=== PATIENT | male | born 2000 | race Caucasian/White ===

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

== ENCOUNTER 2018-05-16 23:14 | Emergency (ER) | payer OTHER ==
--- NOTE | 2018-05-16 23:53 | ER Document Report ---
ED Medical Screen (RME) - General Chief Complaint: Abdominal Pain Stated Complaint: ABDOMINAL PAIN Time Seen by Provider: 05/16/18 23:50 Notes: Patient is a 18-year-old male presents to the emergency department complaining of rectal pain, lower abdominal pain and rectal bleeding. Patient states she has an extensive history of constipation states he has not had a bowel movement for 2 weeks. States he saw GI yesterday and was put on trulance. States he does have a colonoscopy scheduled for Monday. Patient states the pain was unbearable this evening and he noted a lot of bright red blood in the toilet and on the toilet seat which is why he inevitably presents to the emergency room. Past medical history: Constipation Medications: Trulance, Colace Allergies: None GENERAL: Alert, interacts well. Pallor, tachycardic, diaphoretic. ABDOMEN: Soft, generalized tenderness all 4 quadrants Non-distended. Bowel sounds present in all 4 quadrants. I have greeted and performed a rapid initial assessment of this patient. A comprehensive ED assessment and evaluation of the patient, analysis of test results and completion of the medical decision making process will be conducted by additional ED providers. TRAVEL OUTSIDE OF THE [place] IN LAST 30 DAYS: No - Related Data Allergies/Adverse Reactions: No Known Allergies Allergy (Verified 12/17/13 20:22) Past Medical History - Past Medical History Cardiac Medical History: Denies: Hx Heart Attack, Hx Hypertension Pulmonary Medical History: Denies: Hx Asthma Neurological Medical History: Denies: Hx Cerebrovascular Accident, Hx Seizures GI Medical History: Denies: Hx Hepatitis, Hx Hiatal Hernia, Hx Ulcer Infectious Medical History: Denies: Hx Hepatitis Past Surgical History: Denies: Hx Open Heart Surgery, Hx Pacemaker - Immunizations Hx Diphtheria, Pertussis, Tetanus Vaccination: Yes Physical Exam - Vital signs Vitals: Temp Pulse Resp BP Pulse Ox 97.4 F 116 H 24 H 154/93 H 97 05/16/18 23:32 05/16/18 23:32 05/16/18 23:32 05/16/18 23:32 05/16/18 23:32 Course - Vital Signs Vital signs: Temp Pulse Resp BP Pulse Ox 97.4 F 116 H 24 H 154/93 H 97 05/16/18 23:32 05/16/18 23:32 05/16/18 23:32 05/16/18 23:32 05/16/18 23:32 Doctor's Discharge - Discharge Referrals: AYLIN LOBATO MD [Primary Care Provider] - Follow up as needed
[2018-05-17 00:34] LABS: ABSOLUTE LYMPHOCYTES (AUTO) 1.1 10^3/uL (0.5-4.7); ABSOLUTE MONOCYTES (AUTO) 0.9 10^3/uL (0.1-1.4); ABSOLUTE NEUT (AUTO) 13.3 10^3/uL (1.7-8.2); BASOPHILS % (AUTO) 0.3 % (0-2); EOSINOPHILS % (AUTO) 0.2 % (0-6); HEMATOCRIT 54.6 % (37.9-51.0); HEMOGLOBIN 18.8 g/dL (13.5-17.0); LYMPHOCYTES % (AUTO) 6.9 % (13-45); MEAN CORPUSCULAR HGB CONC 34.4 g/dL (32.0-36.0); MEAN CORPUSCULAR VOLUME 84 fl (80-97); MONOCYTES % (AUTO) 5.6 % (3-13); PLATELET COUNT 333 10^3/uL (150-450); RED BLOOD COUNT 6.48 10^6/uL (4.35-5.55); RED CELL DISTRIBUTION WIDTH 13.9 % (11.5-14.0); TOTAL CELLS COUNTED % (AUTO) 100 %; WHITE BLOOD COUNT 15.3 10^3/uL (4.0-10.5)
[2018-05-17 00:46] LABS: ALANINE AMINOTRANSFERASE 31 U/L (21-72); ALBUMIN 5.4 g/dL (3.5-5.0); ALKALINE PHOSPHATASE 121 U/L (38-126); ANION GAP 14 (5-19); ASPARTATE AMINO TRANSFERASE 25 U/L (17-59); BILIRUBIN,DIRECT 0.4 mg/dL (0.0-0.4); BILIRUBIN,TOTAL 1.1 mg/dL (0.2-1.3); BLOOD UREA NITROGEN 18 mg/dL (7-20); CARBON DIOXIDE 20 mmol/L (22-30); CHLORIDE 105 mmol/L (98-107); GLUCOSE 138 mg/dL (75-110); POTASSIUM 3.9 mmol/L (3.6-5.0); SODIUM 138.8 mmol/L (137-145); TOTAL PROTEIN 8.6 g/dL (6.3-8.2)
[2018-05-17] MEDS ORDERED: NORMAL SALINE 1000 ML 1,000 ML IV ONE (00:52)
[2018-05-17] MEDS ORDERED: FENTANYL CITRATE INJ/PF 100 MCG/2 ML AMPUL IV ONE (00:52)
[2018-05-17] MEDS ORDERED: MINERAL OIL 30 ML UDCUP PR ONE (01:09)
[2018-05-17 01:20] VITALS: BP 159/90
--- NOTE | 2018-05-17 01:29 | RADIOLOGY REPORT (SQ) ---
XR ABDOMEN SUPINE AND ERECT WITH CHEST (ABD ACUTE SERIES) HISTORY: Abdominal pain. COMPARISON: None. FINDINGS: There are possible air-fluid levels in the right hemiabdomen on the upright view. Copious stool is seen throughout the colon and rectum. The lungs are clear without pleural effusions. IMPRESSION: 1. Possible air-fluid levels which may represent developing small bowel obstruction. Recommend CT scan. 2. Constipation with a large stool burden in the rectum. 3. Clear lungs.
--- NOTE | 2018-05-17 03:47 | ER Document Report ---
ED General - General Chief Complaint: Abdominal Pain Stated Complaint: ABDOMINAL PAIN Time Seen by Provider: 05/16/18 23:50 Notes: I initially saw the patient in [facility]. See note below. Patient is a 18-year-old male presents to the emergency department complaining of rectal pain, lower abdominal pain and rectal bleeding. Patient states he has an extensive history of constipation states he has not had a bowel movement for 2 weeks. States he saw GI yesterday and was put on trulance. States he does have a colonoscopy scheduled for Monday. Patient states the pain was unbearable this evening and he noted a lot of bright red blood in the toilet and on the toilet seat which is why he inevitably presents to the emergency room. Past medical history: Constipation Medications: Trulance, Colace Allergies: None GENERAL: Alert, interacts well. Pallor, tachycardic, diaphoretic. ABDOMEN: Soft, generalized tenderness all 4 quadrants Non-distended. Bowel sounds present in all 4 quadrants TRAVEL OUTSIDE OF THE [place] IN LAST 30 DAYS: No - Related Data Allergies/Adverse Reactions: No Known Allergies Allergy (Verified 12/17/13 20:22) Past Medical History - General Information source: Patient, Parent - Social History Smoking Status: Never Smoker Family History: Reviewed & Not Pertinent - Past Medical History Cardiac Medical History: Denies: Hx Heart Attack, Hx Hypertension Pulmonary Medical History: Denies: Hx Asthma Neurological Medical History: Denies: Hx Cerebrovascular Accident, Hx Seizures GI Medical History: Denies: Hx Hepatitis, Hx Hiatal Hernia, Hx Ulcer Infectious Medical History: Denies: Hx Hepatitis Past Surgical History: Denies: Hx Open Heart Surgery, Hx Pacemaker - Immunizations Hx Diphtheria, Pertussis, Tetanus Vaccination: Yes Review of Systems - Review of Systems Constitutional: No symptoms reported EENT: No symptoms reported Cardiovascular: No symptoms reported Respiratory: No symptoms reported Gastrointestinal: See HPI Genitourinary: No symptoms reported Male Genitourinary: No symptoms reported Musculoskeletal: No symptoms reported Skin: No symptoms reported Hematologic/Lymphatic: No symptoms reported Neurological/Psychological: No symptoms reported Physical Exam - Vital signs Vitals: Temp Pulse Resp BP Pulse Ox 97.4 F 116 H 24 H 154/93 H 97 05/16/18 23:32 05/16/18 23:32 05/16/18 23:32 05/16/18 23:32 05/16/18 23:32 - Notes Notes: GENERAL: Alert, interacts well. Continues to be tachycardic, diaphoretic and in obvious pain. HEAD: Normocephalic, atraumatic. EYES: Pupils equal, round, and reactive to light. Extraocular movements intact. ENT: Oral mucosa moist, tongue midline. NECK: Full range of motion. Supple. Trachea midline. LUNGS: Clear to auscultation bilaterally, no wheezes, rales, or rhonchi. No respiratory distress. HEART: Regular rate and rhythm. No murmur ABDOMEN: Soft, generalized tenderness all 4 quadrants. Non-distended. Bowel sounds present in all 4 quadrants. EXTREMITIES: Moves all 4 extremities spontaneously. No edema, normal radial and dorsalis pedis pulses bilaterally. No cyanosis. BACK: no cervical, thoracic, lumbar midline tenderness. No saddle anesthesia, normal distal neurovascular exam. NEUROLOGICAL: Alert and oriented x3. Normal speech. cranial nerves II through XII grossly intact PSYCH: Normal affect, normal mood. SKIN: Warm, dry, normal turgor. No rashes or lesions noted. Rectal exam with Josiane TORIBIO in the room revealed Copious amounts of watery stool leakage, good rectal tone noted no obvious m jackie or bright red blood noted. Course - Re-evaluation Re-evalutation: 05/17/18 03:46 A soapsuds enema was initially ordered. Per nursing staff the patient had a lot of trouble holding in the enema. Nursing staff stated they attempted multiple times. Due to patient's acute abdominal series stating potential SBO a CT was then ordered. Patient had had no relief at that time from the enema. Nursing staff then brings to my attention that the patient has passed a large hard amount of stool. Nursing staff states the patient feels a lot better. Upon my reassessment the patient is no longer tachycardic, no longer diaphoret ic, no longer pallor. Patient is standing walking around the room in no obvious distress. Patient states he no longer has any abdominal pain and no longer has any rectal pain. Patient states I feel a whole lot better after I was able to poop. On reexamination of patient's abdomen he is soft and nontender in all 4 quadrants. Discussed continued use of medications prescribed by gastroenterology and continued follow-up with gastroenterology. At this time patient is stable for discharge. 05/17/18 03:48 Patient's labs showed no signs of anemia or chronic blood loss. - Vital Signs Vital signs: Temp Pulse Resp BP Pulse Ox 97.4 F 116 H 20 159/90 H 98 05/16/18 23:32 05/16/18 23:32 05/17/18 02:00 05/17/18 00:12 05/17/18 02:00 - Laboratory Result Diagrams: 05/17/18 00:22 05/17/18 00:22 Laboratory results interpreted by me: 05/17/18 05/17/18 00:22 00:22 WBC 15.3 H RBC 6.48 H Hgb 18.8 H Hct 54.6 H Seg Neutrophils % 87.0 H Lymphocytes % 6.9 L Absolute Neutrophils 13.3 H Carbon Dioxide 20 L Creatinine 1.54 H Est GFR (Non-Af Amer) 58 L Glucose 138 H Calcium 11.0 H Total Protein 8.6 H Albumin 5.4 H Discharge - Discharge Clinical Impression: Constipation Qualifiers: Constipation type: unspecified constipation type Qualified Code(s): K59.00 - Constipation, unspecified Condition: Stable Disposition: HOME, SELF-CARE Instructions: Abdominal Pain ([facility]), Constipation ([facility]) Additional Instructions: As we discussed you should continue taking medications prescribed by [facility]. You should also return to the emergency room should you have any more abdominal pain or continued rectal bleeding. Please follow-up with your primary care provider in 24-48 hours. Prescriptions: Polyethylene Glycol 3350 [Miralax] 1 cap PO DAILY #527 powder Referrals: AYLIN LOBATO MD [NO LOCAL MD] - Follow up as needed
== END 2018-05-17 04:15 | disposition home or self-care (01) ==
LOC: ER 23:14
DX: K59.00 Constipation, unspecified (principal); R10.9 Unspecified abdominal pain; K62.89 Other specified diseases of anus and rectum; R10.30 Lower abdominal pain, unspecified; R23.1 Pallor; R00.0 Tachycardia, unspecified
CPT/HCPCS: 99284; 96374; 36415; 85025; 80053; 74022; J3010; J3490; J7030

== ENCOUNTER 2018-08-01 13:55 | Emergency (ER) | payer OTHER ==
[2018-08-01] MEDS ORDERED: METOCLOPRAMIDE HCL INJ/PF 10 MG/2 ML SDV IV ONE (14:18)
--- NOTE | 2018-08-01 14:21 | ER Document Report ---
ED Medical Screen (RME) - General Chief Complaint: Constipation Stated Complaint: ABDOMINAL PAIN Time Seen by Provider: 08/01/18 14:14 TRAVEL OUTSIDE OF THE [place] IN LAST 30 DAYS: No - HPI Notes: 08/01/18 14:19 Patient is a 18-year-old male with a history of chronic intermittent abdominal pains, Higginbotham esophagus, nausea/vomiting who presents the emergency department complaining of mid abdominal pain that radiates across the abdomen with trouble having bowel movements. Mother believes his last bowel movement was 2 days ago, patient cannot remember. He is otherwise able to eat and drink, but does have a decreased p.o. intake. He is urinating normally. No surgeries to his abdomen. Denies any headache, fever, URI, sore throat, chest pain, palpitations, syncope, cough, shortness of breath, wheeze, dyspnea, urinary retention, dysuria, hematuria, or rash. I have treated and performed a rapid initial assessment of this patient. A comprehensive ED assessment and evaluation of the patient, analysis of test results and completion of medical decision making process will be conducted by additional ED providers. PHYSICAL EXAMINATION: GENERAL: Well-appearing, well-nourished and in no acute distress. A&Ox4. Answers questions appropriately. LUNGS: Breath sounds clear to auscultation bilaterally and equal. No wheezes rales or rhonchi. HEART: Regular rate and rhythm without murmurs, rubs, gallops. ABDOMEN: Soft, nondistended abdomen. No guarding, no rebound. Normal bowel sounds present. No CVA tenderness bilaterally. + mild mid tenderness (cannot elicit thorough abd exam w/o table, however). Extremities: No cyanosis, clubbing, or edema b/l. NEUROLOGICAL: Normal speech, normal gait. PSYCH: Normal mood, normal affect. - Related Data Allergies/Adverse Reactions: No Known Allergies Allergy (Verified 08/01/18 13:56) Past Medical History - Past Medical History Cardiac Medical History: Denies: Hx Heart Attack, Hx Hypertension Pulmonary Medical History: Denies: Hx Asthma Neurological Medical History: Denies: Hx Cerebrovascular Accident, Hx Seizures Renal/ Medical History: Denies: Hx Peritoneal Dialysis GI Medical History: Reports: Hx Gastroesophageal Reflux Disease. Denies: Hx Hepatitis, Hx Hiatal Hernia, Hx Ulcer Psychiatric Medical History: Reports: Hx Bipolar Disorder Infectious Medical History: Denies: Hx Hepatitis Past Surgical History: Denies: Hx Open Heart Surgery, Hx Pacemaker - Immunizations Hx Diphtheria, Pertussis, Tetanus Vaccination: Yes Physical Exam - Vital signs Vitals: Temp Pulse Resp BP Pulse Ox 97.8 F 98 18 152/94 H 97 08/01/18 14:01 08/01/18 14:01 08/01/18 14:01 08/01/18 14:01 08/01/18 14:01 Course - Vital Signs Vital signs: Temp Pulse Resp BP Pulse Ox 97.8 F 98 18 152/94 H 97 08/01/18 14:01 08/01/18 14:01 08/01/18 14:01 08/01/18 14:01 08/01/18 14:01
--- NOTE | 2018-08-01 15:04 | RADIOLOGY REPORT (SQ) ---
EXAM DESCRIPTION: ACUTE ABDOMEN SERIES COMPLETED DATE/TIME: 08/01/2018 2:53 pm REASON FOR STUDY: abd pain COMPARISON: 05/17/2018. NUMBER OF VIEWS: Three views. TECHNIQUE: Frontal chest, supine abdomen and upright/decubitus abdomen radiographic images acquired. LIMITATIONS: None. FINDINGS: CHEST: Lungs clear of infiltrates. FREE AIR: None. No abnormal gas collections. BOWEL GAS PATTERN: Nonobstructive pattern. Large amount of stool throughout the colon. No dilated l oops or air fluid levels. CALCIFICATIONS: No suspicious calcifications. HARDWARE: None in the abdomen. SOFT TISSUES: No gross mass or suggestion of organomegaly. BONES: No acute fracture. No worrisome bone lesions. OTHER: No other significant finding. IMPRESSION: NO RADIOGRAPHIC EVIDENCE FOR ACUTE ABDOMINAL DISEASE. LARGE AMOUNT OF STOOL, POSSIBLY C ONSTIPATION. TECHNICAL DOCUMENTATION: JOB ID: [id number] [employer]- All Rights Reserved Reading location - IP/workstation name: [email or web address]
[2018-08-01 15:06] LABS: ABSOLUTE BASOPHILS # (AUTO) 0.1 10^3/uL (0.0-0.2); ABSOLUTE EOSINOPHILS # (AUTO) 0.2 10^3/uL (0.0-0.6); ABSOLUTE LYMPHOCYTES (AUTO) 1.6 10^3/uL (0.5-4.7); ABSOLUTE MONOCYTES (AUTO) 0.6 10^3/uL (0.1-1.4); ABSOLUTE NEUT (AUTO) 4.4 10^3/uL (1.7-8.2); BASOPHILS % (AUTO) 0.9 % (0-2); EOSINOPHILS % (AUTO) 2.2 % (0-6); HEMATOCRIT 49.6 % (37.9-51.0); HEMOGLOBIN 17.3 g/dL (13.5-17.0); LYMPHOCYTES % (AUTO) 23.7 % (13-45); MEAN CORPUSCULAR HEMOGLOBIN 29.8 pg (27.0-33.4); MEAN CORPUSCULAR HGB CONC 34.8 g/dL (32.0-36.0); MEAN CORPUSCULAR VOLUME 86 fl (80-97); MONOCYTES % (AUTO) 8.5 % (3-13); PLATELET COUNT 294 10^3/uL (150-450); RED BLOOD COUNT 5.79 10^6/uL (4.35-5.55); RED CELL DISTRIBUTION WIDTH 13.8 % (11.5-14.0); SEGMENTED NEUTROPHILS % (AUTO) 64.7 % (42-78); TOTAL CELLS COUNTED % (AUTO) 100 %; WHITE BLOOD COUNT 6.8 10^3/uL (4.0-10.5)
[2018-08-01 15:20] LABS: ALANINE AMINOTRANSFERASE 30 U/L (21-72); ALBUMIN 4.9 g/dL (3.5-5.0); ALKALINE PHOSPHATASE 103 U/L (38-126); ANION GAP 11 (5-19); ASPARTATE AMINO TRANSFERASE 34 U/L (17-59); BILIRUBIN,DIRECT 0.4 mg/dL (0.0-0.4); BLOOD UREA NITROGEN 16 mg/dL (7-20); CALCIUM 10.6 mg/dL (8.4-10.2); CARBON DIOXIDE 21 mmol/L (22-30); CHLORIDE 110 mmol/L (98-107); GLUCOSE 90 mg/dL (75-110); LIPASE 57.5 U/L (23-300); POTASSIUM 4.2 mmol/L (3.6-5.0); SODIUM 141.5 mmol/L (137-145); TOTAL PROTEIN 8.7 g/dL (6.3-8.2)
--- NOTE | 2018-08-01 15:52 | ER Document Report ---
ED General - General Chief Complaint: Constipation Stated Complaint: ABDOMINAL PAIN Time Seen by Provider: 08/01/18 14:14 Mode of Arrival: Ambulatory Information source: Patient Notes: This is a 18-year-old man with a history of bipolar affective disorder, ADHD, anxiety, GERD/Higginbotham's esophagitis, hiatal hernia and a long history of constipation issues. Patient is followed by Dr. Johnson and had an unremarkable colonoscopy in May and had an EGD performed yesterday. Patient states he was at work and started having significant abdominal pain. He does feel like he is been constipated. He does experience some rectal bleeding when he has straining hard to have a bowel movement. Medicines: Vyvanse 75 mg daily Seroquel 300 mg nightly Clonidine 0.3 mg nightly Vistaril 25 mg twice daily Lamictal 100 mg twice daily Topamax 250 mg daily Omeprazole 40 mg twice daily Ambien 10 mg nightly as needed Colorite Trulance 3mg Daily No known drug allergies TRAVEL OUTSIDE OF THE [place] IN LAST 30 DAYS: No - HPI Onset: Just prior to arrival Onset/Duration: Gradual Quality of pain: Dull Severity: Moderate Pain Level: 2 Associated symptoms: denies: Chest pain, Diarrhea, Nausea, Vomiting, Shortness of breath Exacerbated by: Denies Relieved by: Denies Similar symptoms previously: Yes Recently seen / treated by doctor: Yes - Related Data Allergies/Adverse Reactions: No Known Allergies Allergy (Verified 08/01/18 13:56) Past Medical History - General Information source: Patient - Social History Smoking Status: Current Every Day Smoker Cigarette use (# per day): Yes - Half pack per day Chew tobacco use (# tins/day): No Frequency of alcohol use: None Drug Abuse: None Lives with: Family Family History: Reviewed & Not Pertinent Patient has suicidal ideation: No Patient has homicidal ideation: No - Past Medical History Cardiac Medical History: Denies: Hx Heart Attack, Hx Hypertension Pulmonary Medical History: Denies: Hx Asthma Neurological Medical History: Denies: Hx Cerebrovascular Accident, Hx Seizures Renal/ Medical History: Denies: Hx Peritoneal Dialysis GI Medical History: Reports: Hx Gastroesophageal Reflux Disease. Denies: Hx Hepatitis, Hx Hiatal Hernia, Hx Ulcer Psychiatric Medical History: Reports: Hx Bipolar Disorder Infectious Medical History: Denies: Hx Hepatitis Past Surgical History: Denies: Hx Open Heart Surgery, Hx Pacemaker - Immunizations Hx Diphtheria, Pertussis, Tetanus Vaccination: Yes Review of Systems - Review of Systems Constitutional: denies: Chills, Fever EENT: No symptoms reported Cardiovascular: No symptoms reported Respiratory: No symptoms reported Gastrointestinal: See HPI Genitourinary: No symptoms reported Male Genitourinary: No symptoms reported Musculoskeletal: No symptoms reported Skin: No symptoms reported Hematologic/Lymphatic: No symptoms reported Neurological/Psychological: No symptoms reported Physical Exam - Vital signs Vitals: Temp Pulse Resp BP Pulse Ox 97.8 F 98 18 152/94 H 97 08/01/18 14:01 08/01/18 14:01 08/01/18 14:01 08/01/18 14:01 08/01/18 14:01 Notes: Physical exam: GENERAL: Patient is sleeping in the stretcher and easily aroused, oriented x3. HEAD: Atraumatic, normocephalic. EYES: Pupils equal round and reactive to light, extraocular movements intact, sclera anicteric, conjunctiva are normal. ENT: TMs normal, nares patent, oropharynx clear without exudates. Moist mucous membranes. NECK: Normal range of motion, supple without obvious mass or JVD. LUNGS: Breath sounds clear to auscultation bilaterally and equal. No wheezes rales or rhonchi. HEART: Regular rate and rhythm without murmurs, rubs or gallops. ABDOMEN: Soft, normoactive bowel sounds. No tenderness to palpation. No guarding, no rebound. No masses appreciated. Rectal: He has some dried blood around the anal canal. There is no obvious external hemorrhoids. He does have a large amount of stool in the vault which is hard and sticky in nature. I did try and loosen up the stool and to get it off of the good of the bowel. The stool is brown. It is heme positive. EXTREMITIES: Normal range of motion, no pitting or edema. No clubbing or cyanosis. NEUROLOGICAL: Cranial nerves II through XII grossly intact. Normal speech, moving all extremities. PSYCH: Normal mood, normal affect. SKIN: Warm, Dry, normal turgor, no rashes or lesions noted. Course - Re-evaluation Re-evalutation: 08/01/18 16:41 After the rectal manipulation, patient had a soapsuds enema and did have a very large bowel movement with significant relief in the ER. Repeat abdominal exam is soft and nontender. - Vital Signs Vital signs: Temp Pulse Resp BP Pulse Ox 97.8 F 78 18 131/89 H 100 08/01/18 16:59 08/01/18 16:59 08/01/18 14:01 08/01/18 16:59 08/01/18 16:59 - Laboratory Result Diagrams: 08/01/18 14:35 08/01/18 14:35 Laboratory results interpreted by me: 08/01/18 08/01/18 14:35 14:35 RBC 5.79 H Hgb 17.3 H Chloride 110 H Carbon Dioxide 21 L Creatinine 1.29 H Calcium 10.6 H Total Protein 8.7 H - Diagnostic Test Radiology reviewed: Image reviewed, Reports reviewed - No evidence of obstruction, large amount of stool Discharge - Discharge Clinical Impression: Constipation Condition: Stable Disposition: HOME, SELF-CARE Instructions: Constipation ([facility]) Additional Instructions: As we discussed, I would add fiber to the diet. I would discuss with the psychiatrist whether there is some alternative to Vistaril which can dry out mucous membranes and lead to constipation. I do also want you to follow-up with Dr. Johnson (GI) as planned. Return to the emergency room for abdominal pain, fever (temperature greater than 100.5 or any concerns or getting worse. Forms: Return to Work
[2018-08-01 17:03] VITALS: BP 131/89
== END 2018-08-01 17:03 | disposition home or self-care (01) ==
LOC: ER 13:55
DX: K59.00 Constipation, unspecified (principal); K62.5 Hemorrhage of anus and rectum; F31.9 Bipolar disorder, unspecified; F41.9 Anxiety disorder, unspecified; K21.9 Gastro-esophageal reflux disease without esophagitis; F90.9 Attention-deficit hyperactivity disorder, unspecified type; R56.9 Unspecified convulsions; Z79.899 Other long term (current) drug therapy; Z98.890 Other specified postprocedural states; F17.210 Nicotine dependence, cigarettes, uncomplicated
CPT/HCPCS: 99283; 96374; 36415; 83690; 85025; 80053; 74022; J2765

== ENCOUNTER 2018-09-06 02:57 | Emergency (ER) | payer OTHER ==
[2018-09-06] MEDS ORDERED: ONDANSETRON HCL INJ/PF 4 MG/2 ML SDV IV ONE (05:18)
[2018-09-06] MEDS ORDERED: NORMAL SALINE 1000 ML 1,000 ML IV ONE ×2 (05:18→06:46)
[2018-09-06] MEDS ORDERED: KETOROLAC TROMETHAMINE INJ/PF 30 MG/1 ML SDV IV ONE (05:18)
--- NOTE | 2018-09-06 05:27 | ER Document Report ---
ED GI/ - General Chief Complaint: Flank Pain Stated Complaint: FLANK PAIN Time Seen by Provider: 09/06/18 05:10 TRAVEL OUTSIDE OF THE [place] IN LAST 30 DAYS: No - HPI Notes: 09/06/18 05:21 Patient is a 18-year-old male with a history of bipolar, anxiety and ADHD who presents with a chief complaint of left flank pain. Patient states that around midnight tonight he developed an acute onset of left flank pain that radiates into the left lower quadrant of his abdomen. Patient states that he is extremel y nauseous and has vomited 3-4 times since the onset of pain. Patient states that nothing makes the pain better. Patient states that he is uncomfortable and unable to find a position of comfort. Patient denies a history of kidney stones. Patient denies testicular pain. Denies urinary symptoms. - Related Data Allergies/Adverse Reactions: No Known Allergies Allergy (Verified 08/01/18 13:56) Past Medical History - General Information source: Patient - Social History Smoking Status: Unknown if Ever Smoked Lives with: Family Family History: Reviewed & Not Pertinent - Past Medical History Cardiac Medical History: Reports: None Denies: Hx Heart Attack, Hx Hypertension Pulmonary Medical History: Reports: None Denies: Hx Asthma EENT Medical History: Reports: None Neurological Medical History: Reports: None. Denies: Hx Cerebrovascular Accident, Hx Seizures Endocrine Medical History: Reports: None Renal/ Medical History: Reports: None. Denies: Hx Peritoneal Dialysis Malignancy Medical History: Reports None GI Medical History: Reports: Hx Gastroesophageal Reflux Disease. Denies: Hx Hepatitis, Hx Hiatal Hernia, Hx Ulcer Musculoskeletal Medical History: Reports None Skin Medical History: Reports None Psychiatric Medical History: Reports: Hx Anxiety, Hx Attention Deficit Hyperactivity Disorder, Hx Bipolar Disorder Traumatic Medical History: Reports: None Infectious Medical History: Reports: None. Denies: Hx Hepatitis Surgical Hx: Negative Past Surgical History: Reports: None. Denies: Hx Open Heart Surgery, Hx Pacemaker - Immunizations Hx Diphtheria, Pertussis, Tetanus Vaccination: Yes Review of Systems - Review of Systems Constitutional: No symptoms reported EENT: No symptoms reported Cardiovascular: No symptoms reported Respiratory: No symptoms reported Gastrointestinal: See HPI Genitourinary: See HPI Male Genitourinary: No symptoms reported Musculoskeletal: No symptoms reported Skin: No symptoms reported Hematologic/Lymphatic: No symptoms reported Neurological/Psychological: No symptoms reported Physical Exam - Vital signs Vitals: Pulse Resp BP Pulse Ox 63 22 H 120/99 H 97 09/06/18 03:07 09/06/18 03:07 09/06/18 03:07 09/06/18 03:07 Interpretation: Normal Notes: GENERAL: Ill appearing, patient appears to be extremely uncomfortable and unable to find position of comfort HEAD: Atraumatic, normocephalic. EYES: Pupils equal round and reactive to light, extraocular movements intact, sclera anicteric, conjunctiva are normal. ENT: Moist mucous membranes. NECK: Normal range of motion, supple without lymphadenopathy or JVD. LUNGS: Breath sounds clear to auscultation bilaterally and equal. No wheezes rales or rhonchi. HEART: Regular rate and rhythm without murmurs, rubs or gallops. ABDOMEN: Soft, nontender, normoactive bowel sounds. No guarding, no rebound. No masses appreciated. EXTREMITIES: Normal range of motion, no pitting or edema. No clubbing or cyanosis. NEUROLOGICAL: Cranial nerves II through XII grossly intact. Normal speech, normal gait. PSYCH: Normal mood, normal affect. SKIN: Warm, Dry, normal turgor, no rashes or lesions noted. Course - Re-evaluation Re-evalutation: 09/06/18 05:26 On initial evaluation patient appears to be in acute distress with pain. Patient is unable to find position of comfort on stretcher. Patient symptoms are consistent with a possible kidney stone. Patient denies a history of kidney stones. Will obtain basic lab work, give IV fluids, give antinausea and pain medications. Will reevaluate. 09/06/18 06:39 Patient reports feeling much better after receiving Toradol. Reassessment patient's abdomen now that he is more comfortable. Abdomen is soft and generally benign except for minimal tenderness to the left lower quadrant. Patient continues to complain of left flank pain. 09/06/18 07:[address] scan shows mild left hydronephrosis and hydroureter to the level of a 2 mm left distal ureteral stone. Was noted that patient's creatinine is 1.54 this appears to be his baseline as his creatinine was 1.29 and July of this year and 1.54 in May of this year. Patient had denied any history of kidney insufficiency. Patient did receive Toradol IV prior to the results of the creatinine. Will give second liter of fluid. Awaiting urine results. If urine is not infected or shows any abnormality patient is able to be discharged. Patient remains afebrile. Vitals stable. - Vital Signs Vital signs: Temp Pulse Resp BP Pulse Ox 98.5 F 75 18 131/71 H 98 09/06/18 08:24 09/06/18 08:24 09/06/18 08:24 09/06/18 08:24 09/06/18 08:24 - Laboratory Result Diagrams: 09/06/18 05:45 09/06/18 05:45 Laboratory results interpreted by me: 09/06/18 09/06/18 05:45 05:45 WBC 12.7 H RBC 5.73 H RDW 14.6 H Seg Neutrophils % 83.6 H Lymphocytes % 9.1 L Absolute Neutrophils 10.6 H Chloride 110 H Creatinine 1.54 H Est GFR (Non-Af Amer) 58 L Glucose 117 H Calcium 10.4 H Patient does have a slightly elevated white count of 12.7. Urinalysis pending. - Diagnostic Test Radiology reviewed: Image reviewed, Reports reviewed Discharge - Discharge Clinical Impression: Ureteral stone with hydronephrosis Vomiting Qualifiers: Vomiting type: unspecified Vomiting Intractability: non-intractable Nausea presence: with nausea Qualified Code(s): R11.2 - Nausea with vomiting, unspecified Condition: Stable Disposition: HOME, SELF-CARE Instructions: Antinausea Medication ([facility]), Intravenous (IV) Fluids ([facility]) Additional Instructions: Today you were seen in the emergency department for flank pain. Your CT scan showed a small 2 mm left ureteral stone. It appears that it is close to the bladder which means you should pass the stone within the next 24 to 48 hours. I am going to prescribe you Creston, this is a narcotic pain medication that will help with your discomfort over the next few days. It was also noted that you do have elevated kidney function. The elevated kidney function is not new today as it was also present during your visit in July and May of this year. You do need to follow-up with your primary care physician or urology for follow-up of this elevated kidney function. Please return to the emergency department for any worsening symptoms such as fever, severe pain that is not controlled with the Creston, vomiting, abdominal pain or any other concerning signs or symptoms. Kidney Stone You are passing or have passed a kidney stone. These stones are usually due to increased calcium or uric acid concentrations in your urine. Stones within the kidney itself are not painful. The pain occurs as the stone leaves the kidney to pass down the long tube, called the ureter, leading to the bladder. If the stone is small, it will usually pass by itself. Most patients can pass the stone at home. You will usually receive medications for pain, nausea or vomiting, and sometimes a medication to assist in passing the kidney stone. However, if the pain is very severe or if vomiting prevents you from taking oral pain medications, you may need to return for further treatment. Drink three or four quarts of fluids per day. You will be given pain medication (if needed) and urine strainers. Strain all your urine to see if the stone passes. If your doctor has asked you to bring the stone in for analysis, return with the stone once it has passed. Return if pain or vomiting become severe, if you develop a high fever, if you are unable to pass your urine, or if other unusual symptoms occur. Prescriptions: Ondansetron [Zofran Odt 4 mg Tablet] 1 - 2 tab PO Q4H PRN #15 tab.rapdis PRN Reason: For Nausea/Vomiting Oxycodone HCl/Acetaminophen [Percocet 5-325 mg Tablet] 1 tab PO Q4H PRN #15 tablet PRN Reason:
[2018-09-06 06:02] LABS: ABSOLUTE BASOPHILS # (AUTO) 0.1 10^3/uL (0.0-0.2); ABSOLUTE EOSINOPHILS # (AUTO) 0.1 10^3/uL (0.0-0.6); ABSOLUTE LYMPHOCYTES (AUTO) 1.2 10^3/uL (0.5-4.7); ABSOLUTE MONOCYTES (AUTO) 0.7 10^3/uL (0.1-1.4); ABSOLUTE NEUT (AUTO) 10.6 10^3/uL (1.7-8.2); BASOPHILS % (AUTO) 0.6 % (0-2); EOSINOPHILS % (AUTO) 0.8 % (0-6); HEMATOCRIT 49.7 % (37.9-51.0); HEMOGLOBIN 16.9 g/dL (13.5-17.0); LYMPHOCYTES % (AUTO) 9.1 % (13-45); MEAN CORPUSCULAR HEMOGLOBIN 29.4 pg (27.0-33.4); MEAN CORPUSCULAR HGB CONC 33.9 g/dL (32.0-36.0); MEAN CORPUSCULAR VOLUME 87 fl (80-97); MONOCYTES % (AUTO) 5.9 % (3-13); PLATELET COUNT 282 10^3/uL (150-450); RED BLOOD COUNT 5.73 10^6/uL (4.35-5.55); RED CELL DISTRIBUTION WIDTH 14.6 % (11.5-14.0); SEGMENTED NEUTROPHILS % (AUTO) 83.6 % (42-78); TOTAL CELLS COUNTED % (AUTO) 100 %; WHITE BLOOD COUNT 12.7 10^3/uL (4.0-10.5)
[2018-09-06 06:17] LABS: ALANINE AMINOTRANSFERASE 43 U/L (21-72); ALBUMIN 4.5 g/dL (3.5-5.0); ALKALINE PHOSPHATASE 114 U/L (38-126); ANION GAP 11 (5-19); ASPARTATE AMINO TRANSFERASE 24 U/L (17-59); BILIRUBIN,DIRECT 0.4 mg/dL (0.0-0.4); BILIRUBIN,TOTAL 0.7 mg/dL (0.2-1.3); BLOOD UREA NITROGEN 12 mg/dL (7-20); CALCIUM 10.4 mg/dL (8.4-10.2); CARBON DIOXIDE 23 mmol/L (22-30); CHLORIDE 110 mmol/L (98-107); GLUCOSE 117 mg/dL (75-110); POTASSIUM 3.7 mmol/L (3.6-5.0); TOTAL PROTEIN 7.5 g/dL (6.3-8.2)
--- NOTE | 2018-09-06 07:28 | RADIOLOGY REPORT (SQ) ---
CT abdomen and pelvis without contrast on 09/06/2018 at 7:01 AM CLINICAL INDICATION: Left-sided back pain TECHNIQUE: Multiple axial images are obtained throughout the abdomen and pelvis without the administration of contrast. This exam was performed according to our departmental dose-optimization program, which includes automated exposure control, adjustment of the mA and/or kV according to patient size and/or use of iterative reconstruction technique. Total DLP is 1121.71 mGy*cm. COMPARISON: 12/18/2013 FINDINGS: Abdomen: The lung bases are clear. There is mild left hydronephrosis and hydroureter to the level of a 2 mm left distal ureteral stone just above the left UVJ. There is mild left perinephric stranding related to the obstruction. There are no other renal or ureteral stones. The unenhanced solid abdominal organs are otherwise unremarkable. There is no abdominal adenopathy. There is no free fluid or free air within the abdomen. The abdominal portion of the GI tract is unremarkable. Pelvis: Pelvic portion of the GI tract including the appendix is unremarkable. There is no free fluid in the pelvis. There is no pelvic adenopathy. No bony abnormality is noted. IMPRESSION: 1. Mild left hydronephrosis and hydroureter to the level of a 2 mm left distal ureteral stone just above the left UVJ. 2. No other acute abnormality.
[2018-09-06 09:13] LABS: APPEARANCE,URINE SLIGHTLY-CLOUDY; BILIRUBIN,URINE NEGATIVE (NEGATIVE); COLOR,URINE AMBER; GLUCOSE, URINE NEGATIVE (NEGATIVE); KETONES,URINE NEGATIVE (NEGATIVE); LEUKOCYTE ESTERASE,URINE NEGATIVE (NEGATIVE); NITRITE,URINE NEGATIVE (NEGATIVE); PROTEIN,URINE 100 mg/dL (NEGATIVE); URINE SPECIFIC GRAVITY 1.023; UROBILINOGEN,URINE NEGATIVE mg/dL (<2.0)
[2018-09-06 10:56] VITALS: BP 141/79
== END 2018-09-06 11:03 | disposition home or self-care (01) ==
LOC: ER 02:57
DX: N13.2 Hydronephrosis with renal and ureteral calculous obstruction (principal); R11.2 Nausea with vomiting, unspecified; D72.829 Elevated white blood cell count, unspecified
CPT/HCPCS: 99284; 96361; 96374; 96375; 36415; 85025; 80053; 81001; 74176; J1885; J2405; J7030

== ENCOUNTER 2018-09-07 17:09 | Emergency (ER) | payer OTHER ==
[2018-09-07] MEDS ORDERED: NORMAL SALINE 1000 ML 1,000 ML IV ONE ×2 (18:40→23:03)
[2018-09-07] MEDS ORDERED: KETOROLAC TROMETHAMINE INJ/PF 30 MG/1 ML SDV IV ONE (18:40)
[2018-09-07] MEDS ORDERED: ONDANSETRON HCL INJ/PF 4 MG/2 ML SDV IV ONE ×2 (18:42→22:38)
--- NOTE | 2018-09-07 18:42 | ER Document Report ---
ED Medical Screen (RME) - General Chief Complaint: Possible Kidney Stone Stated Complaint: FLANK PAIN Time Seen by Provider: 09/07/18 18:34 Mode of Arrival: Ambulatory Information source: Patient TRAVEL OUTSIDE OF THE [place] IN LAST 30 DAYS: No - HPI Patient complains to provider of: LEFT FLANK PAIN Notes: 09/07/18 18:41 Patient here with complaints of left flank pain. The patient was here 2 days ago diagnosed with a left kidney stone. Was sent home on Percocet. The Percocet is not helping his pain at all. Is been having some vomiting. No fever. Exam Patient appears to be really uncomfortable. Having difficulty finding a comfortable position. Lungs clear and equal throughout. Heart sounds normal. Plan CBC, CMP, urine, lipase, saline lock, KUB, IV fluids, Zofran, Toradol. An initial examination was made on the patient as part of the triage process, and it was determined a more comprehensive evaluation was necessary. Initial labs were ordered and patient was transferred to another provider in the ED who assumed care and finished evaluation and plan. - Related Data Allergies/Adverse Reactions: No Known Allergies Allergy (Verified 09/07/18 17:10) Past Medical History - Past Medical History Cardiac Medical History: Denies: Hx Heart Attack, Hx Hypertension Pulmonary Medical History: Denies: Hx Asthma Neurological Medical History: Denies: Hx Cerebrovascular Accident, Hx Seizures Renal/ Medical History: Denies: Hx Peritoneal Dialysis GI Medical History: Reports: Hx Gastroesophageal Reflux Disease. Denies: Hx Hepatitis, Hx Hiatal Hernia, Hx Ulcer Psychiatric Medical History: Reports: Hx Anxiety, Hx Attention Deficit Hyperactivity Disorder, Hx Bipolar Disorder Infectious Medical History: Denies: Hx Hepatitis Past Surgical History: Denies: Hx Open Heart Surgery, Hx Pacemaker - Immunizations Hx Diphtheria, Pertussis, Tetanus Vaccination: Yes Physical Exam - Vital signs Vitals: Temp Pulse Resp BP Pulse Ox 98.5 F 71 20 146/102 H 99 09/07/18 17:21 09/07/18 17:21 09/07/18 17:21 09/07/18 17:21 09/07/18 17:21 Course - Vital Signs Vital signs: Temp Pulse Resp BP Pulse Ox 98.5 F 71 20 146/102 H 99 09/07/18 17:21 09/07/18 17:21 09/07/18 17:21 09/07/18 17:21 09/07/18 17:21
--- NOTE | 2018-09-07 19:03 | RADIOLOGY REPORT (SQ) ---
EXAM DESCRIPTION: KUB/ABDOMEN (SINGLE VIEW) COMPLETED DATE/TIME: 09/07/2018 6:52 pm REASON FOR STUDY: LEFT KIDNEY STONE, INCREASED PAIN COMPARISON: 08/01/2018 NUMBER OF VIEWS: One view. TECHNIQUE: Supine radiographic image of the abdomen acquired. LIMITATIONS: None. FINDINGS: BOWEL GAS PATTERN: Normal bowel gas pattern. No dilated loops. CALCIFICATIONS: No suspicious calcifications. SOFT TISSUES: No gross mass or suggestion of organomegaly. HARDWARE: None in the abdomen. BONES: No acute fracture. No worrisome bone lesions. OTHER: No other significant finding. IMPRESSION: NO RADIOGRAPHIC EVIDENCE FOR ACUTE ABDOMINAL DISEASE. TECHNICAL DOCUMENTATION: JOB ID: [id number] [id number] 2010 [employer]- All Rights Reserved Reading location - IP/workstation name: [email or web address]
[2018-09-07 20:04] LABS: ABSOLUTE EOSINOPHILS # (AUTO) 0.1 10^3/uL (0.0-0.6); ABSOLUTE LYMPHOCYTES (AUTO) 1.6 10^3/uL (0.5-4.7); ABSOLUTE MONOCYTES (AUTO) 1.2 10^3/uL (0.1-1.4); ABSOLUTE NEUT (AUTO) 10.5 10^3/uL (1.7-8.2); BASOPHILS % (AUTO) 0.3 % (0-2); HEMATOCRIT 48.9 % (37.9-51.0); HEMOGLOBIN 16.5 g/dL (13.5-17.0); MEAN CORPUSCULAR HEMOGLOBIN 29.2 pg (27.0-33.4); MEAN CORPUSCULAR HGB CONC 33.8 g/dL (32.0-36.0); MEAN CORPUSCULAR VOLUME 86 fl (80-97); PLATELET COUNT 273 10^3/uL (150-450); RED BLOOD COUNT 5.67 10^6/uL (4.35-5.55); RED CELL DISTRIBUTION WIDTH 14.6 % (11.5-14.0); SEGMENTED NEUTROPHILS % (AUTO) 77.7 % (42-78); TOTAL CELLS COUNTED % (AUTO) 100 %; WHITE BLOOD COUNT 13.5 10^3/uL (4.0-10.5)
[2018-09-07 20:26] LABS: ALANINE AMINOTRANSFERASE 35 U/L (21-72); ALBUMIN 4.5 g/dL (3.5-5.0); ALKALINE PHOSPHATASE 108 U/L (38-126); ANION GAP 14 (5-19); ASPARTATE AMINO TRANSFERASE 21 U/L (17-59); BILIRUBIN,DIRECT 0.4 mg/dL (0.0-0.4); BILIRUBIN,TOTAL 1.1 mg/dL (0.2-1.3); BLOOD UREA NITROGEN 10 mg/dL (7-20); CALCIUM 10.4 mg/dL (8.4-10.2); CARBON DIOXIDE 21 mmol/L (22-30); CHLORIDE 106 mmol/L (98-107); GLUCOSE 95 mg/dL (75-110); LIPASE 51.6 U/L (23-300); POTASSIUM 3.7 mmol/L (3.6-5.0); SODIUM 141.2 mmol/L (137-145); TOTAL PROTEIN 7.5 g/dL (6.3-8.2)
--- NOTE | 2018-09-07 22:05 | ER Document Report ---
ED GI/ - General Chief Complaint: Possible Kidney Stone Stated Complaint: FLANK PAIN Time Seen by Provider: 09/07/18 18:34 Mode of Arrival: Ambulatory Notes: Patient is a 18 year old male that comes to the emergency department for chief complaint of left abdominal and left flank pain. He was diagnosed with a 2 mm kidney stone here 2 days ago, he was sent home with Percocet, nausea medication, he states that this did not help and today he became much worse with constant pain and he began throwing up again. He denies fever/chills. Parents at bedside. 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 TRAVEL OUTSIDE OF THE [place] IN LAST 30 DAYS: No - Related Data Allergies/Adverse Reactions: No Known Allergies Allergy (Verified 09/07/18 17:10) Past Medical History - General Information source: Patient, Parent - Social History Smoking Status: Never Smoker Drug Abuse: None Lives with: Family Family History: Reviewed & Not Pertinent - Past Medical History Cardiac Medical History: Denies: Hx Heart Attack, Hx Hypertension Pulmonary Medical History: Denies: Hx Asthma Neurological Medical History: Denies: Hx Cerebrovascular Accident, Hx Seizures Renal/ Medical History: Denies: Hx Peritoneal Dialysis GI Medical History: Reports: Hx Gastroesophageal Reflux Disease. Denies: Hx Hepatitis, Hx Hiatal Hernia, Hx Ulcer Psychiatric Medical History: Reports: Hx Anxiety, Hx Attention Deficit Hyperactivity Disorder, Hx Bipolar Disorder Infectious Medical History: Denies: Hx Hepatitis Past Surgical History: Denies: Hx Open Heart Surgery, Hx Pacemaker - Immunizations Hx Diphtheria, Pertussis, Tetanus Vaccination: Yes Review of Systems - Review of Systems Constitutional: No symptoms reported EENT: No symptoms reported Cardiovascular: No symptoms reported Respiratory: No symptoms reported Gastrointestinal: See HPI Genitourinary: See HPI Male Genitourinary: No symptoms reported Musculoskeletal: No symptoms reported Skin: No symptoms reported Hematologic/Lymphatic: No symptoms reported Neurological/Psychological: No symptoms reported Physical Exam - Vital signs Vitals: Temp Pulse Resp BP Pulse Ox 98.5 F 71 20 146/102 H 99 09/07/18 17:21 09/07/18 17:21 09/07/18 17:21 09/07/18 17:21 09/07/18 17:21 - Notes Notes: GENERAL: Alert, interacts well. No acute distress. HEAD: Normocephalic, atraumatic. EYES: Pupils equal, round, and reactive to light. Extraocular movements intact. ENT: Oral mucosa moist, tongue midline. Oropharynx unremarkable. Airway patent. NECK: Full range of motion. Supple. Trachea midline. LUNGS: Clear to auscultation bilaterally, no wheezes, rales, or rhonchi. No respiratory distress. HEART: Regular rate and rhythm. No murmur ABDOMEN: Minimal left lower quadrant pain. Abdomen is soft and benign otherwise. No guarding or rigidity. Non-distended. Bowel sounds present in all 4 quadrants. GENITOURINARY: Deferred EXTREMITIES: Moves all 4 extremities spontaneously. No edema, normal radial and dorsalis pedis pulses bilaterally. No cyanosis. BACK: no cervical, thoracic, lumbar midline tenderness. No saddle anesthesia, normal distal neurovascular exam. NEUROLOGICAL: Alert and oriented x3. Normal speech. PSYCH: Normal affect, normal mood. SKIN: Warm, dry, normal turgor. No rashes or lesions noted. Course - Re-evaluation Re-evalutation: CBC shows mild leukocytosis, chemistry shows no significant change in renal functioning at 1.5, otherwise unremarkable. Urinalysis does not indicate overt infection. No fever. Patient is very well-appearing on my exam. Discussed with patient. Patient states that he is waiting until he gets a lot of pain and then trying to take, recommended better pacing. Patient is asking for Toradol because it works so well when he is here. Family is also asking for this. I explained because of his history of Higginbotham's esophagus and he has borderline renal functioning that this could be risky, the persistent asked for this and I did give a few to him to take only with very specific precautions including 40 mg of famotidine and with food. They also agreed to continue to hydrate and only take it if absolutely necessary. Discussed urology follow-up, discussed return precautions, they state understanding and agreement. - Vital Signs Vital signs: Temp Pulse Resp BP Pulse Ox 98.2 F 75 20 154/86 H 100 09/07/18 23:09 09/07/18 23:09 09/07/18 23:09 09/07/18 23:09 09/07/18 23:09 - Laboratory Result Diagrams: 09/07/18 19:23 09/07/18 19:23 Laboratory results interpreted by me: 05/02/1609/07/18 09/07/18 19:23 19:23 22:25 WBC 13.5 H RBC 5.67 H RDW 14.6 H Lymphocytes % 12.0 L Absolute Neutrophils 10.5 H Carbon Dioxide 21 L Creatinine 1.57 H Est GFR (Non-Af Amer) 57 L Calcium 10.4 H Urine Ketones 20 H Urine Blood MODERATE H Urine Urobilinogen 2.0 H Ur Leukocyte Esterase TRACE H Discharge - Discharge Clinical Impression: Ureterolithiasis, Flank pain Condition: Stable Disposition: HOME, SELF-CARE Additional Instructions: Continue medication for pain and nausea as previously prescribed. Because the Toradol helps this can be used but only very cautiously because of your past medical history. I recommend if you do take this that you take 40 mg of Pepcid and I do not recommend you taking it more than once a day. Also drink a lot of fluids when doing so. Follow-up closely with urology and follow-up with your primary care. Return if you worsen including uncontrolled vomiting, fever/chills, or any other concerning or worsening symptoms. Prescriptions: Ketorolac Tromethamine [Toradol 10 mg Tablet] 10 mg PO Q12HP PRN #10 tablet PRN Reason: Famotidine [Pepcid 20 mg Tablet] 40 mg PO BID PRN #20 tablet PRN Reason:
[2018-09-07] MEDS ORDERED: MORPHINE SULFATE 10 MG/ML INJ IV ONE (22:38)
[2018-09-07 22:53] LABS: APPEARANCE,URINE SLIGHTLY-CLOUDY; BILIRUBIN,URINE NEGATIVE (NEGATIVE); CALCIUM OXALATE CRYSTALS,URINE FEW /HPF; COLOR,URINE AMBER; GLUCOSE, URINE NEGATIVE (NEGATIVE); KETONES,URINE 20 mg/dL (NEGATIVE); LEUKOCYTE ESTERASE,URINE TRACE (NEGATIVE); NITRITE,URINE NEGATIVE (NEGATIVE); PROTEIN,URINE NEGATIVE (NEGATIVE); URINE SPECIFIC GRAVITY 1.027
[2018-09-07 23:16] VITALS: BP 154/86
[2018-09-07] MEDS ORDERED: HYDROCODONE/ACETAMINOPHEN 5-325 MG (6 TAB/ER DISP) PO PRN (23:17)
== END 2018-09-07 23:45 | disposition home or self-care (01) ==
LOC: ER 17:09
DX: N20.1 Calculus of ureter (principal); R10.9 Unspecified abdominal pain; Z87.442 Personal history of urinary calculi
CPT/HCPCS: 96376; 99284; 96361; 96374; 96375; 36415; 83690; 85025; 80053; 81001; 74018; J1885; J2270; J2405; J7030

== ENCOUNTER 2018-12-18 00:06 | Emergency (ER) | payer OTHER ==
[2018-12-18 00:24] VITALS: BP 137/92
[2018-12-18] MEDS ORDERED: KETOROLAC TROMETHAMINE 60 MG/2 ML SDV IM ONE (01:06)
[2018-12-18] MEDS ORDERED: ONDANSETRON 4 MG TAB.RAPDIS PO ONE (01:06)
[2018-12-18] MEDS ORDERED: OXYCODONE-ACETAMINOPHEN 5-325 MG TABLET PO ONE (01:06)
--- NOTE | 2018-12-18 01:10 | ER Document Report ---
ED Medical Screen (RME) - General Chief Complaint: Flank Pain Stated Complaint: FLANK/BACK PAIN Time Seen by Provider: 12/18/18 01:05 Notes: 25-year-old male chief complaint of sudden onset right flank pain radiating to the right abdomen that started at 9:30 PM tonight, he does report a history of kidney stones and he is always been able to pass them. Patient has been vomiting multiple times. He denies any other complaints. TRAVEL OUTSIDE OF THE [place] IN LAST 30 DAYS: No - Related Data Allergies/Adverse Reactions: No Known Allergies Allergy (Verified 09/07/18 17:10) Past Medical History - Past Medical History Cardiac Medical History: Denies: Hx Heart Attack, Hx Hypertension Pulmonary Medical History: Denies: Hx Asthma Neurological Medical History: Denies: Hx Cerebrovascular Accident, Hx Seizures Renal/ Medical History: Denies: Hx Peritoneal Dialysis GI Medical History: Reports: Hx Gastroesophageal Reflux Disease. Denies: Hx Hepatitis, Hx Hiatal Hernia, Hx Ulcer Psychiatric Medical History: Reports: Hx Anxiety, Hx Attention Deficit Hyperactivity Disorder, Hx Bipolar Disorder Infectious Medical History: Denies: Hx Hepatitis Past Surgical History: Denies: Hx Open Heart Surgery, Hx Pacemaker - Immunizations Hx Diphtheria, Pertussis, Tetanus Vaccination: Yes Physical Exam - Vital signs Vitals: Temp Pulse Resp BP Pulse Ox 97.4 F 65 32 H 137/92 H 99 12/18/18 00:23 12/18/18 00:23 12/18/18 00:23 12/18/18 00:23 12/18/18 00:23 - General General appearance: No: Appears well - Obviously in pain, diaphoretic, vomiting - Abdominal Tenderness: Tender - Generalized tenderness on right side of the abdomen Course - Re-evaluation Re-evalutation: I have greeted and performed a rapid initial assessment of this patient. A comprehensive ED assessment and evaluation of the patient, analysis of test results and completion of the medical decision making process will be conducted by additional ED providers. - Vital Signs Vital signs: Temp Pulse Resp BP Pulse Ox 97.4 F 65 32 H 137/92 H 99 12/18/18 00:23 12/18/18 00:23 12/18/18 00:23 12/18/18 00:23 12/18/18 00:23
[2018-12-18 01:40] LABS: ABSOLUTE EOSINOPHILS # (AUTO) 0.2 10^3/uL (0.0-0.6); ABSOLUTE LYMPHOCYTES (AUTO) 2.1 10^3/uL (0.5-4.7); ABSOLUTE MONOCYTES (AUTO) 0.7 10^3/uL (0.1-1.4); ABSOLUTE NEUT (AUTO) 8.1 10^3/uL (1.7-8.2); BASOPHILS % (AUTO) 0.3 % (0-2); EOSINOPHILS % (AUTO) 2.2 % (0-6); HEMOGLOBIN 18.7 g/dL (13.5-17.0); LYMPHOCYTES % (AUTO) 18.6 % (13-45); MEAN CORPUSCULAR HEMOGLOBIN 30.4 pg (27.0-33.4); MEAN CORPUSCULAR HGB CONC 33.7 g/dL (32.0-36.0); MEAN CORPUSCULAR VOLUME 90 fl (80-97); MONOCYTES % (AUTO) 6.3 % (3-13); PLATELET COUNT 312 10^3/uL (150-450); RED BLOOD COUNT 6.17 10^6/uL (4.35-5.55); RED CELL DISTRIBUTION WIDTH 16.3 % (11.5-14.0); SEGMENTED NEUTROPHILS % (AUTO) 72.6 % (42-78); TOTAL CELLS COUNTED % (AUTO) 100 %; WHITE BLOOD COUNT 11.1 10^3/uL (4.0-10.5)
[2018-12-18 01:50] LABS: HEMATOCRIT 55.7 % (37.9-51.0)
[2018-12-18 02:25] LABS: ANION GAP 15 (5-19); BLOOD UREA NITROGEN 15 mg/dL (7-20); CALCIUM 10.2 mg/dL (8.4-10.2); CARBON DIOXIDE 19 mmol/L (22-30); CHLORIDE 107 mmol/L (98-107); GLUCOSE 146 mg/dL (75-110); POTASSIUM 3.9 mmol/L (3.6-5.0)
[2018-12-18 02:26] LABS: ALBUMIN 4.9 g/dL (3.5-5.0); ALKALINE PHOSPHATASE 108 U/L (38-126); ASPARTATE AMINO TRANSFERASE 29 U/L (17-59); BILIRUBIN,DIRECT 0.4 mg/dL (0.0-0.4); BILIRUBIN,TOTAL 0.9 mg/dL (0.2-1.3)
[2018-12-18 02:34] LABS: TOTAL PROTEIN 8.5 g/dL (6.3-8.2)
[2018-12-18] MEDS ORDERED: NORMAL SALINE 1000 ML 1,000 ML IV ONE ×2 (03:35→03:36)
--- NOTE | 2018-12-18 03:40 | ER Document Report ---
ED GI/ - General Chief Complaint: Flank Pain Stated Complaint: FLANK/BACK PAIN Time Seen by Provider: 12/18/18 01:05 Primary Care Provider: AB HARRIS MD [Primary Care Provider] - Follow up as needed Notes: Patient is a 25-year-old male that comes to the Emergency Department with chief complaint of sudden onset right flank pain radiating to the right abdomen that started at 9:30 PM tonight. He does report a history of kidney stones and he is always been able to pass them. Patient has been vomiting multiple times. He denies any other complaints. TRAVEL OUTSIDE OF THE [place] IN LAST 30 DAYS: No - Related Data Allergies/Adverse Reactions: No Known Allergies Allergy (Verified 12/18/18 01:31) Past Medical History - General Information source: Patient - Social History Smoking Status: Current Every Day Smoker Chew tobacco use (# tins/day): No Frequency of alcohol use: None Drug Abuse: None Lives with: Family Family History: Reviewed & Not Pertinent Patient has suicidal ideation: No Patient has homicidal ideation: No - Past Medical History Cardiac Medical History: Denies: Hx Heart Attack, Hx Hypertension Pulmonary Medical History: Denies: Hx Asthma Neurological Medical History: Denies: Hx Cerebrovascular Accident, Hx Seizures Renal/ Medical History: Denies: Hx Peritoneal Dialysis GI Medical History: Reports: Hx Gastroesophageal Reflux Disease. Denies: Hx Hepatitis, Hx Hiatal Hernia, Hx Ulcer Psychiatric Medical History: Reports: Hx Anxiety, Hx Attention Deficit Hyperactivity Disorder, Hx Bipolar Disorder Infectious Medical History: Denies: Hx Hepatitis Past Surgical History: Denies: Hx Open Heart Surgery, Hx Pacemaker - Immunizations Hx Diphtheria, Pertussis, Tetanus Vaccination: Yes Review of Systems - Review of Systems Constitutional: No symptoms reported EENT: No symptoms reported Cardiovascular: No symptoms reported Respiratory: No symptoms reported Gastrointestinal: See HPI Genitourinary: See HPI Male Genitourinary: No symptoms reported Musculoskeletal: No symptoms reported Skin: No symptoms reported Hematologic/Lymphatic: No symptoms reported Neurological/Psychological: No symptoms reported Physical Exam - Vital signs Vitals: Temp Pulse Resp BP Pulse Ox 97.4 F 65 32 H 137/92 H 99 12/18/18 00:23 12/18/18 00:23 12/18/18 00:23 12/18/18 00:23 12/18/18 00:23 - Notes Notes: GENERAL: Initially patient in a lot of pain, diaphoretic, vomiting HEAD: Normocephalic, atraumatic. EYES: Pupils equal, round, and reactive to light. Extraocular movements intact. ENT: Oral mucosa moist, tongue midline. Oropharynx unremarkable. Airway patent. LUNGS: Clear to auscultation bilaterally, no wheezes, rales, or rhonchi. No respiratory distress. HEART: Regular rate and rhythm. No murmur ABDOMEN: Some generalized tenderness in the mid to lower right abdomen, otherwise soft benign abdomen. No rigidity or guarding. EXTREMITIES: Moves all 4 extremities spontaneously. No edema, normal radial and dorsalis pedis pulses bilaterally. No cyanosis. BACK: no cervical, thoracic, lumbar midline tenderness. No saddle anesthesia, normal distal neurovascular exam. Moves all extremities in full range of motion. NEUROLOGICAL: Alert and oriented x3. Normal speech. Cranial nerves II through XII grossly intact. PSYCH: Slightly agitated SKIN: Diaphoretic Course - Re-evaluation Re-evalutation: Patient presenting with most likely kidney stone. Symptoms were sudden in onse t, started in the right flank radiating to the right abdomen. Patient has a history of kidney stones, he had a CAT scan last year showing only a 2 mm kidney stone and nothing else. Urinalysis showing a lot of blood but unremarkable otherwise, CBC shows elevated hemoglobin, chemistry nonspecific except for creatinine of 1.4. Patient was given 2 L bolus normal saline because of the elevated hemoglobin and elevated creatinine. Patient does not have a fever. He remains very well-appearing on reevaluation. I did offer a CAT scan to diagnose the specifics, however this was declined after discussion. I feel this is appropriate because patient only had a single 2 mm right UVJ last time and I feel it is unlikely he would have a large obstructing stone at this time. In addition to this patient's symptoms completely resolved with IM Toradol and p.o. medications. Patient will be discharged home, referred to urology, and return if he worsens in any way. This was discussed in detail. Patient states understanding and agreement. - Vital Signs Vital signs: Temp Pulse Resp BP Pulse Ox 97.4 F 65 32 H 137/92 H 99 12/18/18 00:23 12/18/18 00:23 12/18/18 00:23 12/18/18 00:23 12/18/18 00:23 - Laboratory Result Diagrams: 12/18/18 01:22 12/18/18 01:22 Laboratory results interpreted by me: 12/18/18 12/18/18 12/18/18 01:22 01:22 06:02 WBC 11.1 H RBC 6.17 H Hgb 18.7 H Hct 55.7 H RDW 16.3 H Carbon Dioxide 19 L Creatinine 1.40 H Glucose 146 H Total Protein 8.5 H Urine Protein 30 H Urine Ketones TRACE H Urine Blood LARGE H Urine Urobilinogen 2.0 H Discharge - Discharge Clinical Impression: Right flank pain Vomiting Qualifiers: Vomiting type: unspecified Vomiting Intractability: non-intractable Nausea presence: with nausea Qualified Code(s): R11.2 - Nausea with vomiting, unspecified Condition: Stable Disposition: HOME, SELF-CARE Additional Instructions: Your evaluation is consistent with a passing kidney stone. Take the pain medication if needed, take the nausea medication if needed for drink plenty fluids. Follow-up with the urology referral listed below, call to set this up. Return if you worsen including return/worsening pain, vomiting, fever/chills, or any other concerning or worsening symptoms. [facility] [address] [place] [address] [facility] [address] [place], [place] [id number] Chidi Barragan MD Doctor in [place], [place] Address: [address] [place] [address] [address], [place] [address] Prescriptions: Oxycodone HCl/Acetaminophen [Percocet 5-325 mg Tablet] 1 - 2 tab PO TID PRN #12 tablet PRN Reason: Promethazine HCl [Phenergan 25 mg Tablet] 25 mg PO Q6H PRN #15 tablet PRN Reason: Forms: Return to Work Referrals: AB HARRIS MD [Primary Care Provider] - Follow up as needed
[2018-12-18 06:22] LABS: APPEARANCE,URINE SLIGHTLY-CLOUDY; BILIRUBIN,URINE NEGATIVE (NEGATIVE); COLOR,URINE AMBER; GLUCOSE, URINE NEGATIVE (NEGATIVE); KETONES,URINE TRACE mg/dL (NEGATIVE); LEUKOCYTE ESTERASE,URINE NEGATIVE (NEGATIVE); NITRITE,URINE NEGATIVE (NEGATIVE); PROTEIN,URINE 30 mg/dL (NEGATIVE); URINE SPECIFIC GRAVITY 1.023
[2018-12-18] MEDS ORDERED: HYDROCODONE/ACETAMINOPHEN 5-325 MG (6 TAB/ER DISP) PO PRN (06:45)
[2018-12-18] MEDS ORDERED: ONDANSETRON ODT 4 MG TAB (6 TAB/ER DISP) PO PRN (06:45)
== END 2018-12-18 07:26 ==
LOC: ER 00:06
DX: R10.9 Unspecified abdominal pain (principal); R11.2 Nausea with vomiting, unspecified; R31.9 Hematuria, unspecified; R79.89 Other specified abnormal findings of blood chemistry; F17.200 Nicotine dependence, unspecified, uncomplicated; Z87.442 Personal history of urinary calculi; Z87.19 Personal history of other diseases of the digestive system; D58.2 Other hemoglobinopathies
CPT/HCPCS: 36415; 85025; 80053; 81001; J1885; S0119; J7030; 96360; 96361; 96372; 99284